=== PATIENT | male | born 1965 | race African-American/Black ===

== ENCOUNTER 2022-09-04 09:19 | Day surgery (SDC) | payer OTHER ==
[2022-09-04] MEDS ORDERED: Lidocaine 1% PF 5 ML VIAL ONE (09:24)
[2022-09-04] MEDS ORDERED: Sodium Bicarbonate 2.5 MEQ/5 ML VIAL ONE (09:24)
[2022-09-04 10:48] VITALS: BP 126/66; TEMP 97.8
[2022-09-04] MEDS ORDERED: Iopamidol-M 200 41% 20 ML VIAL ONE (17:00)
== END 2022-09-04 12:00 | disposition home or self-care (01) ==
LOC: CSHRAD 09:19
PROVIDERS: ATTEND Neurological Surgery
PROC: B02BYZZ Computerized Tomography (CT Scan) of Spinal Cord using Other Contrast (ICD-10-PCS; principal; 2022-09-04)
DX: M51.36 Other intervertebral disc degeneration, lumbar region (principal); E11.9 Type 2 diabetes mellitus without complications; I10 Essential (primary) hypertension; M19.90 Unspecified osteoarthritis, unspecified site; Z79.84 Long term (current) use of oral hypoglycemic drugs; Z79.899 Other long term (current) drug therapy
CPT/HCPCS: 62304; 72132; Q9966